=== PATIENT | male | born 1985 | race Caucasian/White ===

== ENCOUNTER 2018-10-28 22:32 | Emergency (ER) | payer MEDICAID ==
[~2018-10-28] VITALS: Ht 182.9 cm; Wt 85.7 kg
--- NOTE | 2018-10-28 22:40 | NUR ---
PT BIBSELF C/O GENERALIZED PAIN X1 MONTH. PT ALSO C/O FEVER, INTERMITTENT NECK SWELLING, DIAPHORESIS, COUGH. PT STATES HE WAS RECENTLY DX WITH HYPERTHYROIDISM AND HAS BEEN SEEN BY MD AND MAC ARTIST. PT AAOX4. RESPIRATIONS EVEN AND UNLABORED. SKIN INTACT. NO ACUTE DISTRESS NOTED AT THIS TIME. WILL CONTINUE TO MONITOR
--- NOTE | 2018-10-28 22:54 | NUR ---
CLAUDIA CONTI AT BEDSIDE FOR EVALUATION
--- NOTE | 2018-10-28 23:41 | NUR ---
Patient discharged to home in stable condition. Written and verbal after care instructions given. Patient verbalizes understanding of instruction. Pt ambulatory with a steady gait
[2018-10-28 23:43] VITALS: BP 123/86
== END 2018-10-28 23:43 | disposition home or self-care (01) ==
LOC: ER 22:37
DX: E03.9 Hypothyroidism, unspecified (principal)